=== PATIENT | male | born 1985 | race Caucasian/White ===

== ENCOUNTER → 2016-11-14 | Outpatient (CLI) | payer OTHER ==
--- NOTE | 2016-11-14 16:13 | KCIC ---
CT right hand without contrast dated 11/14/2016. dated 11/14/2016 3:30 PM Indication: Right hand pain recent injury punched wall 4-5 weeks ago. Pain at metacarpals. Comparison: No comparison is available. Technique: Contiguous axial imaging the right hand performed with thin cut coronal and sagittal reconstructions. One or more of the following individualized dose reduction techniques were utilized for this examination: 1. Automated exposure control 2. Adjustment of the mA and/or kV according to patient size 3. Use of iterative reconstruction technique Findings: Small curvilinear bone fragment or soft tissue calcification along the volar aspect of the base of the fifth metacarpal, best seen on the sagittal sequence (image 49 and 50). Small obliquely oriented radiolucent defect along the volar aspect of the third metacarpal at its base, seen best on the axial sequence (image 43) Osseous structures are otherwise intact. Alignment is anatomic. Carpal bones are intact. Visualized soft tissue structures are unremarkable. Carpal tunnel and Guyon's canal within normal limits. No apparent joint effusion or loose body. IMPRESSION: 1. Curvilinear bone fragment or calcification along the volar aspect of the base of the fifth metacarpal could be related to healing fracture and/or small avulsion. 2. Small obliquely oriented defect at the base of the third metacarpal could represent a normal variant ossification center or a small healing nondisplaced fracture. 3. Otherwise no acute bony or soft tissue abnormality. Electronically signed by: Brayan Dillard MD (11/14/2016 4:10 PM) [id number]
== END | disposition home or self-care (01) ==
LOC: KCIC CT 15:15
PROVIDERS: ATTEND Plastic Surgery
DX: M79.641 Pain in right hand (principal); M25.531 Pain in right wrist; W22.01XA Walked into wall, initial encounter
CPT/HCPCS: 73200